=== PATIENT | female | born 1945 | race Caucasian/White ===

== ENCOUNTER → 2016-11-15 | Outpatient (CLI) | payer OTHER ==
--- NOTE | ~2016-11-15 | SLE ---
[facility] [place] [address] POLYSOMNOGRAPHY STUDY Name: ZACHARY PORTILLO Room #: REG [facility]#: [id number] Admission: 11/15/16 Attend Phys: Marci Torres MD Discharge: Date of : 41 Report #: [id number] THIS REPORT FOR: //name// CC: Marci Staley MD HISTORY: A 71-year-old, height 5 feet 6 inches, weight 175 pounds, sleeps in a recliner rest of the night, positive daytime somnolence, initially off oxygen then placed on 2 liters. COMMENTS: Total sleep time 191 minutes, sleep efficiency 48%. Sleep latency 72 minutes, REM latency 269 minutes. SLEEP STAGE: 1-13, 2-67, 3-17, REM -- 3%. Central apnea 0, mixed apnea 0, obstructive apnea, 3, hypopnea 57. Apnea-hypopnea index of 19 events per sleep hour. Non-REM 18, REM AHI 33. All sleep was in the supine position. Periodic limb movement with arousal index 3.8 events per sleep hour. Snoring noted. Low oxygen saturation 71%, spending 95% of recording time less than 90%. IMPRESSION: 1. Obstructive sleep apnea/hypopnea, G47.33. 2. Periodic limb movement with arousal index of 3.8 events per sleep hour. 3. No significant arrhythmia noted. SUGGESTIONS: 1. In addition to specific therapy, the patient should be cautioned regarding driving or operating dangerous machinery unless fully alert. The patient should be cautioned regarding the use of respiratory depressants. Oral appliance or appropriate surgery may be considered with appropriate followup. A CPAP titration night is recommended starting at a CPAP of 6 without oxygen. If desaturation not improved and events not improved with CPAP then will be placed on BiPAP with the EPAP at the lowest CPAP pressure without an obstructive apnea. If after events are resolved, then would titrate up oxygen during this time. 2. If signs and symptoms not improved with therapy, further evaluation is recommended. Please do not hesitate to contact me if I may be of further assistance. <ELECTRONICALLY SIGNED> By: Marci Torres MD 11/20/16 0935 [id number] Marci Torres MD /nt
== END ==
LOC: SLEEPLAB 09:19
DX: G47.33 Obstructive sleep apnea (adult) (pediatric) (principal)

== ENCOUNTER → 2016-11-23 | Outpatient (CLI) | payer OTHER ==
--- NOTE | ~2016-11-23 | SLE ---
[facility] [place] [address] POLYSOMNOGRAPHY STUDY Name: ZACHARY PORTILLO Room #: REG [facility]#: [id number] Admission: 11/23/16 Attend Phys: Marci Torres MD Discharge: Date of : 41 Report #: [id number] THIS REPORT FOR: //name// CC: Marci Torres NO PCP HISTORY: Prior study on 11/15/2016 showed apnea-hypopnea index of 19 events per sleep hour, low sat of 71%. COMMENTS: CPAP titration: Titrated at 5, 7, 8, 9 and 11 cm water pressure. At 9 cm water pressure, the patient was seen for 46 minutes, which 20 minutes was in REM sleep. Three hypopneas. Apnea-hypopnea index of 3.9 events per sleep hour. Low oxygen saturation of 87%. At 11 cm water pressure, the patient was seen for 32.7 minutes; however, no REM sleep was seen. Apnea-hypopnea index was 0 events per sleep hour, low oxygen saturation at 89%. Because of low oxygen saturation, oxygen was added at 7 cm water pressure as saturation stayed below 90 %. IMPRESSION: 1. Obstructive sleep apnea/hypopnea, G47.33. 2. No significant arrhythmia noted. 3. a definite CPAP setting was not established SUGGESTIONS: 1. An auto titrating CPAP between 5 and 12 cm water pressure is initially recommended. During our study, a ResMed Faria FX medium mask was used with heated humidity, and 1 liter oxygen was added. 2. If signs and symptoms not improved with therapy, further evaluation recommended. Please do not hesitate to contact me if I may be of further assistance.ss 3. The usual sleep apnea suggestions recommended. Patient should be cautioned on use of respiratory depressants.TSH and weight loss should be considered 4. oral appliance or appropriate surgery may be considered with appropriate follow-up <ELECTRONICALLY SIGNED> By: Marci Torres MD 11/29/161847 [id number] 57 Marci Torres MD /nt
== END ==
LOC: SLEEPLAB 14:40
DX: G47.33 Obstructive sleep apnea (adult) (pediatric) (principal)